=== PATIENT | female | born 1950 | race Asian ===

== ENCOUNTER 2023-09-19 02:12 | Inpatient (IN) | payer MEDICARE, OTHER ==
[~2023-09-19] VITALS: Ht 154.9 cm; Wt 103.0 kg
[2023-09-19 04:05] LABS: Chloride 99 mmol/L (98-107); Potassium 4.2 mmol/L (3.5-5.1); Sodium 132 mmol/L (136-145)
[2023-09-19 04:06] LABS: Anion Gap 8 (5-15); Calcium 9.9 mg/dL (8.7-10.4); Carbon Dioxide 25 mmol/L (20-30)
[2023-09-19 04:11] LABS: BUN/Creatinine Ratio 16.8 (10.0-20.0); Blood Urea Nitrogen 17 mg/dL (9-23); Glucose 103 mg/dL (74-106)
[2023-09-19 04:13] LABS: Basophils # (auto) 0.1 10 ^3/uL (0-0.2); Hemoglobin 11.5 g/dL (12.2-16.2); Lymphocytes # (auto) 1.8 10 ^3/uL (0.4-5.4); Monocytes # (auto) 0.8 10 ^3/uL (0-1.3); Red Cell Distribution Width 13.8 % (11.8-14.3); White Blood Cell 9.2 10^3/uL (4.4-10.8)
[2023-09-19 04:14] LABS: Basophils % (auto) 0.6 % (0.0-2.0); Eosinophils # (auto) 0.1 10 ^3/uL (0-0.8); Eosinophils % (auto) 1.2 % (0.0-7.0); Hematocrit 34.7 % (36.0-46.0); Lymphocytes % (auto) 19.6 % (10.0-50.0); Mean Corpuscular Hemoglobin 26.3 pg (28.0-32.0); Mean Corpuscular Hgb Conc. 33.2 g/dL (32.0-36.0); Mean Corpuscular Volume 79.4 fL (80.0-100.0); Monocytes % (auto) 8.9 % (0.0-12.0); Neutrophils # (auto) 6.4 10 ^3/uL (1.6-8.6); Neutrophils % (auto) 69.7 % (37.0-80.0); Nucleated Red Blood Cells % 0.1 %; Red Blood Cells 4.38 10^6/uL (4.0-5.20)
[2023-09-19 04:47] LABS: Erythrocyte Sedimentation Rate 35 mm/hr (0-20)
[2023-09-19] MEDS: IOHEXOL 350 MG/ML 100ML IJ ONE (06:10)
[2023-09-19] MEDS ORDERED: ONDANSETRON HCL 4 MG/2 ML VIAL IV PRN (11:00)
[2023-09-19] MEDS ORDERED: DEXTROSE (50%) 50ML SYRG IV PRN (11:00)
[2023-09-19] MEDS ORDERED: DOCUSATE SOD 100 MG CAP PO PRN (11:00)
[2023-09-19 11:08] VITALS: PULSE 64; RESP 14; O2SAT 100
[2023-09-19 11:49] LABS: INR 0.98 (0.9-1.15); Prothrombin Time 10.4 sec (9.3-11.8)
[2023-09-19] MEDS: HYDROcodone-ACET 5/325MG TAB PO ONE (12:05)
[2023-09-19] MEDS: KETOROLAC TROMETH 60MG/2ML VIAL IM ONE (12:05)
[2023-09-19] MEDS: PANTOPRAZOLE 40 MG/10 ML VIAL INJ IV ONE (12:05)
[2023-09-19] MEDS: COLCHICINE 0.6 MG CAP PO ONE (12:05)
[2023-09-19 12:08] LABS: Urine Bacteria FEW /hpf (None Seen); Urine Blood Negative /uL (Negative); Urine Clarity Clear (Clear); Urine Color Light-Yellow (Yellow); Urine Protein, UAD TRACE (Negative); Urine Urobilinogen Normal (Negative); Urine WBC 1 /hpf (0 - 5); Urine pH 6.5 (5.0-9.0)
[2023-09-19 12:10] LABS: Urine Specific Gravity > 1.050 (1.001-1.035)
[2023-09-19] MEDS: InsuLIN REG 1unit/0.01ml Soln (100units/ml) SC SCH (12:11)
[2023-09-19] MEDS: ACCU-CHEK COMFORT CURVE STRIP VI SCH (12:11)
[2023-09-19] MEDS: SODIUM CHLORIDE 0.9% 1,000 ML IV SCH ×2 (12:13→22:00)
[2023-09-19] MEDS: INDOMETHACIN 25 MG CAP PO SCH (12:37)
[2023-09-19 15:50] VITALS: BP 156/72; PULSE 64; RESP 19; TEMP 97.8; O2SAT 99
[2023-09-19 16:46] VITALS: BP 156/72; PULSE 64; RESP 20; TEMP 97.8; O2SAT 98
[2023-09-19 17:00] VITALS: BP 159/69; PULSE 61; RESP 18; TEMP 98; O2SAT 94
[2023-09-19] MEDS: MORPHINE SULFATE INJ 2 MG/ml SYRG IV PRN (17:26)
[2023-09-19] MEDS ORDERED: NIFE90TA75 PO (17:57)
[2023-09-19] MEDS ORDERED: TRIA50CA43 PO (17:57)
[2023-09-19] MEDS ORDERED: LOSA-535 PO (17:57)
[2023-09-19] MEDS ORDERED: METF-370 PO (17:57)
[2023-09-19] MEDS ORDERED: ASPI-543 PO (17:57)
[2023-09-19] MEDS ORDERED: ATOR20TA PO (17:57)
[2023-09-19] MEDS ORDERED: CLON0.1T PO ×2 (17:57→17:58)
[2023-09-19] MEDS ORDERED: PIO30T PO (17:57)
[2023-09-19] MEDS ORDERED: EST0625T PO (17:57)
[2023-09-19] MEDS ORDERED: SITA100T7 PO (17:57)
[2023-09-19 20:00] VITALS: BP 173/51; PULSE 65; RESP 16; TEMP 97.9; O2SAT 98
[2023-09-19 21:00] VITALS: BP 173/51; PULSE 65; RESP 16; TEMP 97.9; O2SAT 98
[2023-09-19] MEDS: ENOXAPARIN SOD 100 MG/1 ML SYRINGE SC SCH (21:10)
[2023-09-19] MEDS: LOSARTAN POTASSIUM 50 MG TAB PO SCH (22:00)
[2023-09-20] VITALS (7 sets, daily range): BP systolic 115–174; BP diastolic 44–75; PULSE 67–98; RESP 16–20; TEMP 97.7–98.8; O2SAT 94–98
[2023-09-20 06:42] LABS: Basophils # (auto) 0 10 ^3/uL (0-0.2); Basophils % (auto) 0.5 % (0.0-2.0); Eosinophils # (auto) 0.1 10 ^3/uL (0-0.8); Hemoglobin 10.6 g/dL (12.2-16.2); Lymphocytes % (auto) 22.9 % (10.0-50.0); Mean Corpuscular Hemoglobin 26.3 pg (28.0-32.0); Mean Corpuscular Hgb Conc. 33.2 g/dL (32.0-36.0); Monocytes # (auto) 0.9 10 ^3/uL (0-1.3); Neutrophils # (auto) 5.9 10 ^3/uL (1.6-8.6); Neutrophils % (auto) 65.6 % (37.0-80.0); Nucleated Red Blood Cells % 0.1 %; Red Blood Cells 4.05 10^6/uL (4.0-5.20); Red Cell Distribution Width 13.6 % (11.8-14.3); White Blood Cell 8.9 10^3/uL (4.4-10.8)
[2023-09-20 07:00] LABS: Alanine Aminotransferase 16 U/L (7-40); Albumin 3.4 g/dL (3.2-4.8); Alkaline Phosphatase 57 U/L (46-116); Anion Gap 9 (5-15); Aspartate Aminotransferase 21 U/L (13-40); BUN/Creatinine Ratio 19.8 (10.0-20.0); Bilirubin, Total 0.7 mg/dL (0.2-1.0); Blood Urea Nitrogen 22 mg/dL (9-23); Carbon Dioxide 23 mmol/L (20-30); Chloride 99 mmol/L (98-107); Glucose 135 mg/dL (74-106); Potassium 3.9 mmol/L (3.5-5.1); Sodium 131 mmol/L (136-145); Total Protein 6.3 g/dL (5.7-8.2)
[2023-09-20] MEDS: PANTOPRAZOLE 40 MG/10 ML VIAL INJ IV SCH (08:51)
[2023-09-20] MEDS: predniSONE 20 MG TAB PO SCH (08:52)
[2023-09-20] MEDS: cloNIDine HCL 0.1 MG TAB PO PRN (15:44)
[2023-09-21 08:00] VITALS: PULSE 78; RESP 18; O2SAT 98
[2023-09-21 08:54] VITALS: BP 176/67; PULSE 73; RESP 18; TEMP 97.8; O2SAT 98
[2023-09-21] MEDS: NIFEdipine ER 30 MG TAB PO ONE (11:25)
[2023-09-21] MEDS ORDERED: MELO15TA29 PO (11:38)
[2023-09-21] MEDS ORDERED: PRED1PAK9 PO (11:38)
[2023-09-21 12:47] VITALS: BP 146/61; PULSE 78; RESP 16; TEMP 97.8; O2SAT 98
[2023-09-21 15:26] VITALS: BP 146/61; PULSE 78; RESP 18; TEMP 97.8; O2SAT 98
[2023-09-23 07:06] LABS: Complement C3 111 mg/dL (82-167)
[2023-09-23 09:06] LABS: Anti-dsDNA Antibody 2 IU/mL (0-9)
== END 2023-09-21 16:06 | disposition home or self-care (01) | DRG 546 ==
LOC: ER 02:12 → OVERFLOW 11:00 → WEST WING 15:45
PROVIDERS: ADMIT Nurse Practitioner Acute Care; ATTEND Nurse Practitioner Acute Care
DX: M06.841 Other specified rheumatoid arthritis, right hand (principal); E87.1 Hypo-osmolality and hyponatremia; Z68.41 Body mass index [BMI] 40.0-44.9, adult; M19.041 Primary osteoarthritis, right hand; M10.9 Gout, unspecified; I10 Essential (primary) hypertension; E11.9 Type 2 diabetes mellitus without complications; E66.9 Obesity, unspecified; E78.00 Pure hypercholesterolemia, unspecified; E04.1 Nontoxic single thyroid nodule; F17.200 Nicotine dependence, unspecified, uncomplicated; Z88.2 Allergy status to sulfonamides; Z90.710 Acquired absence of both cervix and uterus; Z90.49 Acquired absence of other specified parts of digestive tract; Z83.3 Family history of diabetes mellitus
CPT/HCPCS: 36415; 70450; 70496; 80048; 80053; 81001; 82962; 83036; 84550; 85025; 85379; 85610; 85652; 86141; 86160; 86225; 86431; 93971; 97163; C9113; G0378; J1815; J1885

== ENCOUNTER 2024-01-18 18:45 | Emergency (ER) | payer MEDICARE, OTHER ==
[~2024-01-18] VITALS: Ht 154.9 cm; Wt 105.0 kg
[~2024-01-18 18:45] MED LIST: ATOR20TA PO; CLON0.1T PO; EST0625T PO; LOSA-535 PO; MELO15TA29 PO; METF-370 PO; NIFE90TA75 PO; PIO30T PO; PRED1PAK9 PO; SITA100T7 PO; TRIA50CA43 PO
[2024-01-18 19:06] VITALS: RESP 18
[2024-01-18 21:44] VITALS: BP 153/68; PULSE 74; TEMP 97.7; O2SAT 99
[2024-01-18] MEDS: ONDANSETRON ODT 4 MG TAB PO ONE (22:30)
[2024-01-18 23:01] LABS: COVID19 ANTIGEN SOFIA FIA POSITIVE (NEGATIVE); Rapid Influenza A Negative (Negative); Rapid Influenza B Positive (Negative)
[2024-01-18] MEDS ORDERED: OSEL75CA5 PO (23:38)
[2024-01-18] MEDS ORDERED: AZIT-185 PO (23:38)
[2024-01-18] MEDS ORDERED: ZOFR4T PO (23:40)
== END 2024-01-19 00:14 | disposition home or self-care (01) ==
LOC: ER 18:45
DX: U07.1 COVID-19 (principal); J10.1 Influenza due to other identified influenza virus with other respiratory manifestations; R11.2 Nausea with vomiting, unspecified; I10 Essential (primary) hypertension; E11.9 Type 2 diabetes mellitus without complications; E78.5 Hyperlipidemia, unspecified; Z98.890 Other specified postprocedural states; Z88.2 Allergy status to sulfonamides; Z79.899 Other long term (current) drug therapy
CPT/HCPCS: 36415; 87426; 87804; 99283; Q0162

== ENCOUNTER 2024-01-21 04:41 | Inpatient (IN) | payer MEDICARE, OTHER ==
[~2024-01-21] VITALS: Ht 154.9 cm; Wt 90.6 kg
[2024-01-21] VITALS (7 sets, daily range): BP systolic 148–153; BP diastolic 74–76; PULSE 61–81; RESP 15–18; TEMP 97.6; O2SAT 98–100
[~2024-01-21 04:41] MED LIST changes: +AZIT-185 PO; +OSEL75CA5 PO; +ZOFR4T PO
[2024-01-21 06:48] LABS: COVID19 ANTIGEN SOFIA FIA POSITIVE (NEGATIVE)
[2024-01-21 07:19] LABS: Rapid Influenza A Negative (Negative); Rapid Influenza B Negative (Negative)
[2024-01-21] MEDS: DexAMETHasone SOD PHOS 10MG/1ML VIAL INJ IV ONE (08:33)
[2024-01-21 10:13] LABS: Basophils # (auto) 0 10 ^3/uL (0-0.2); Basophils % (auto) 0.3 % (0.0-2.0); Eosinophils # (auto) 0 10 ^3/uL (0-0.8); Eosinophils % (auto) 0.4 % (0.0-7.0); Hematocrit 36.2 % (36.0-46.0); Hemoglobin 12.4 g/dL (12.2-16.2); Lymphocytes # (auto) 1.4 10 ^3/uL (0.4-5.4); Lymphocytes % (auto) 13.3 % (10.0-50.0); Mean Corpuscular Hemoglobin 26.9 pg (28.0-32.0); Mean Corpuscular Hgb Conc. 34.3 g/dL (32.0-36.0); Mean Corpuscular Volume 78.4 fL (80.0-100.0); Monocytes % (auto) 9.5 % (0.0-12.0); Neutrophils # (auto) 8.2 10 ^3/uL (1.6-8.6); Neutrophils % (auto) 76.5 % (37.0-80.0); Nucleated Red Blood Cells % 0.1 %; Platelet Count (auto) 223 10^3/uL (140-450); Red Blood Cells 4.62 10^6/uL (4.0-5.20); Red Cell Distribution Width 13.3 % (11.8-14.3); White Blood Cell 10.7 10^3/uL (4.4-10.8)
[2024-01-21 10:38] LABS: Alanine Aminotransferase 26 U/L (7-40); Albumin 3.9 g/dL (3.2-4.8); Alkaline Phosphatase 63 U/L (46-116); Anion Gap 7 (5-15); Aspartate Aminotransferase 41 U/L (13-40); BUN/Creatinine Ratio 8.3 (10.0-20.0); Bilirubin, Total 0.9 mg/dL (0.2-1.0); Blood Urea Nitrogen 7 mg/dL (9-23); Calcium 9.3 mg/dL (8.7-10.4); Carbon Dioxide 23 mmol/L (20-30); Chloride 87 mmol/L (98-107); Glucose 127 mg/dL (74-106)
[2024-01-21 10:43] LABS: Sodium 117 mmol/L (136-145)
[2024-01-21] MEDS: SODIUM CHLORIDE 0.9% 1,000 ML IV ONE (11:15)
[2024-01-21] MEDS ORDERED: SODIUM CHL 3% 500 ML IV ONE (13:45)
[2024-01-21] MEDS ORDERED: ONDANSETRON HCL 4 MG/2 ML VIAL IV PRN (14:45)
[2024-01-21] MEDS ORDERED: ACETAMINOPHEN 325 MG TAB PO PRN (14:45)
[2024-01-21 15:06] LABS: Chloride 92 mmol/L (98-107); Potassium 4.1 mmol/L (3.5-5.1)
[2024-01-21 15:07] LABS: Anion Gap 9 (5-15); Carbon Dioxide 23 mmol/L (20-30)
[2024-01-21 15:08] LABS: Calcium 9.1 mg/dL (8.7-10.4)
[2024-01-21 15:13] LABS: Blood Urea Nitrogen 8 mg/dL (9-23); Glucose 214 mg/dL (74-106)
[2024-01-21 15:17] LABS: Sodium 124 mmol/L (136-145)
[2024-01-21 15:54] LABS: Urine Bacteria FEW /hpf (None Seen); Urine Blood Negative /uL (Negative); Urine Clarity Clear (Clear); Urine Color Colorless (Yellow); Urine Protein, UAD Negative (Negative); Urine Specific Gravity 1.003 (1.001-1.035); Urine Urobilinogen Normal (Negative); Urine WBC <1 /hpf (0 - 5); Urine pH 6.5 (5.0-9.0)
[2024-01-21 16:09] LABS: Creatinine, Urine 20.26 mg/dL (30.0-125.0)
[2024-01-21] MEDS: HYDROmorphone HCL 2 MG/ML VL/or syr IV PRN (16:17)
[2024-01-21 17:25] LABS: Anion Gap 8 (5-15); Carbon Dioxide 23 mmol/L (20-30); Chloride 92 mmol/L (98-107); Potassium 3.7 mmol/L (3.5-5.1); Sodium 123 mmol/L (136-145)
[2024-01-21 17:26] LABS: Calcium 9.2 mg/dL (8.7-10.4)
[2024-01-21 17:31] LABS: BUN/Creatinine Ratio 9.2 (10.0-20.0); Blood Urea Nitrogen 8 mg/dL (9-23); Glucose 299 mg/dL (74-106)
[2024-01-21] MEDS: SODIUM CHLOR 0.9% PF (SALINE LOCK) 10ML VIAL/SYR IV SCH (22:29)
[2024-01-21] MEDS: HYDROcodone-ACET 5/325MG TAB PO PRN (22:32)
[2024-01-21 22:36] LABS: Chloride 95 mmol/L (98-107); Potassium 3.9 mmol/L (3.5-5.1); Sodium 125 mmol/L (136-145)
[2024-01-21 22:38] LABS: Calcium 9.5 mg/dL (8.7-10.4)
[2024-01-21 22:44] LABS: BUN/Creatinine Ratio 8.5 (10.0-20.0); Blood Urea Nitrogen 10 mg/dL (9-23)
[2024-01-21 22:54] LABS: Glucose 368 mg/dL (74-106)
[2024-01-21 23:11] LABS: Anion Gap 6 (5-15); Carbon Dioxide 24 mmol/L (20-30)
[2024-01-22] VITALS (10 sets, daily range): BP systolic 121–166; BP diastolic 52–80; PULSE 58–92; RESP 17–20; TEMP 97.8–99.1; O2SAT 94–100
[2024-01-22 05:48] LABS: Basophils # (auto) 0 10 ^3/uL (0-0.2); Eosinophils # (auto) 0 10 ^3/uL (0-0.8); Monocytes # (auto) 1.2 10 ^3/uL (0-1.3); White Blood Cell 8.8 10^3/uL (4.4-10.8)
[2024-01-22 05:51] LABS: Basophils % (auto) 0.3 % (0.0-2.0); Eosinophils % (auto) 0.2 % (0.0-7.0); Hematocrit 33.6 % (36.0-46.0); Hemoglobin 11.8 g/dL (12.2-16.2); Lymphocytes # (auto) 1.6 10 ^3/uL (0.4-5.4); Lymphocytes % (auto) 17.9 % (10.0-50.0); Mean Corpuscular Hemoglobin 27.1 pg (28.0-32.0); Mean Corpuscular Hgb Conc. 35.1 g/dL (32.0-36.0); Mean Corpuscular Volume 77.4 fL (80.0-100.0); Monocytes % (auto) 13.7 % (0.0-12.0); Neutrophils % (auto) 67.9 % (37.0-80.0); Nucleated Red Blood Cells % 0.3 %; Platelet Count (auto) 293 10^3/uL (140-450); Red Blood Cells 4.34 10^6/uL (4.0-5.20); Red Cell Distribution Width 13.4 % (11.8-14.3)
[2024-01-22 06:03] LABS: Anion Gap 9 (5-15); Carbon Dioxide 25 mmol/L (20-30); Chloride 95 mmol/L (98-107); Potassium 3.5 mmol/L (3.5-5.1); Sodium 129 mmol/L (136-145)
[2024-01-22 06:05] LABS: Calcium 8.9 mg/dL (8.7-10.4)
[2024-01-22 06:09] LABS: BUN/Creatinine Ratio 14.3 (10.0-20.0); Blood Urea Nitrogen 12 mg/dL (9-23); Glucose 175 mg/dL (74-106)
[2024-01-22] MEDS ORDERED: DEXTROSE (50%) 50ML SYRG IV PRN (08:45)
[2024-01-22] MEDS: ENOXAPARIN SOD 40 MG/0.4 ML SYRINGE SC SCH (09:34)
[2024-01-22 10:29] LABS: Anion Gap 5 (5-15); Carbon Dioxide 27 mmol/L (20-30); Chloride 95 mmol/L (98-107); Potassium 3.6 mmol/L (3.5-5.1); Sodium 127 mmol/L (136-145)
[2024-01-22 10:30] LABS: Calcium 9.3 mg/dL (8.7-10.4)
[2024-01-22 10:35] LABS: BUN/Creatinine Ratio 11.6 (10.0-20.0); Blood Urea Nitrogen 11 mg/dL (9-23); Glucose 239 mg/dL (74-106)
[2024-01-22 12:12] LABS: Erythrocyte Sedimentation Rate 43 mm/hr (0-20)
[2024-01-22] MEDS ORDERED: HYDR200T36 PO (13:28)
[2024-01-22] MEDS ORDERED: MELO7.5T7 PO (13:28)
[2024-01-22] MEDS: ACCU-CHEK COMFORT CURVE STRIP VI SCH (14:01)
[2024-01-22] MEDS: DexAMETHasone 4 MG TAB PO SCH (14:01)
[2024-01-22] MEDS: InsuLIN REG 1unit/0.01ml Soln (100units/ml) SC SCH ×2 (14:07→21:55)
[2024-01-22 16:47] LABS: Chloride 93 mmol/L (98-107); Potassium 3.5 mmol/L (3.5-5.1); Sodium 126 mmol/L (136-145)
[2024-01-22 16:48] LABS: Anion Gap 7 (5-15); Calcium 9.3 mg/dL (8.7-10.4); Carbon Dioxide 26 mmol/L (20-30)
[2024-01-22 16:53] LABS: BUN/Creatinine Ratio 14.7 (10.0-20.0); Blood Urea Nitrogen 15 mg/dL (9-23); Glucose 277 mg/dL (74-106)
[2024-01-23] VITALS (10 sets, daily range): BP systolic 131–160; BP diastolic 44–78; PULSE 72–92; RESP 17–20; TEMP 98–98.9; O2SAT 96–100
[2024-01-23 05:52] LABS: Basophils # (auto) 0 10 ^3/uL (0-0.2); Basophils % (auto) 0.1 % (0.0-2.0); Eosinophils # (auto) 0 10 ^3/uL (0-0.8); Hematocrit 35.1 % (36.0-46.0); Hemoglobin 12.1 g/dL (12.2-16.2); Lymphocytes # (auto) 1.1 10 ^3/uL (0.4-5.4); Lymphocytes % (auto) 12.3 % (10.0-50.0); Mean Corpuscular Hemoglobin 27.1 pg (28.0-32.0); Mean Corpuscular Hgb Conc. 34.5 g/dL (32.0-36.0); Mean Corpuscular Volume 78.6 fL (80.0-100.0); Monocytes # (auto) 0.5 10 ^3/uL (0-1.3); Monocytes % (auto) 5.3 % (0.0-12.0); Neutrophils # (auto) 7.1 10 ^3/uL (1.6-8.6); Neutrophils % (auto) 82.3 % (37.0-80.0); Nucleated Red Blood Cells % 0.1 %; Platelet Count (auto) 352 10^3/uL (140-450); Red Blood Cells 4.47 10^6/uL (4.0-5.20); Red Cell Distribution Width 13.3 % (11.8-14.3); White Blood Cell 8.7 10^3/uL (4.4-10.8)
[2024-01-23 08:06] LABS: Complement C3 108 mg/dL (82-167)
[2024-01-23 10:07] LABS: Anti-Centromere B Antibody <0.2 AI (0.0-0.9); Anti-Jo-1 Antibody <0.2 AI (0.0-0.9); Anti-dsDNA Antibody 2 IU/mL (0-9); Antichromatin Antibody <0.2 AI (0.0-0.9); Antiscleroderma-70 Antibody >8.0 AI (0.0-0.9); RNP Antibody <0.2 AI (0.0-0.9); Sjogren's Anti-SS-A Antibody <0.2 AI (0.0-0.9); Sjogren's Anti-SS-B Antibody <0.2 AI (0.0-0.9); Smith Antibody <0.2 AI (0.0-0.9)
[2024-01-23 10:26] LABS: Chloride 98 mmol/L (98-107); Potassium 4.3 mmol/L (3.5-5.1); Sodium 128 mmol/L (136-145)
[2024-01-23 10:27] LABS: Anion Gap 4 (5-15); Carbon Dioxide 26 mmol/L (20-30)
[2024-01-23 10:32] LABS: BUN/Creatinine Ratio 20.8 (10.0-20.0); Blood Urea Nitrogen 16 mg/dL (9-23); Glucose 187 mg/dL (74-106)
[2024-01-23] MEDS: ATORVASTATIN 20 MG TAB PO SCH (11:21)
[2024-01-23] MEDS: NIFEdipine ER 30 MG TAB PO SCH (11:21)
[2024-01-24] VITALS (8 sets, daily range): BP systolic 141–172; BP diastolic 64–75; PULSE 69–87; RESP 18–20; TEMP 97.1–98.4; O2SAT 97–100
[2024-01-24] MEDS: METOPROLOL TARTRATE 25 MG TAB PO SCH (00:18)
[2024-01-24 05:57] LABS: Basophils # (auto) 0.1 10 ^3/uL (0-0.2); Basophils % (auto) 0.7 % (0.0-2.0); Eosinophils # (auto) 0 10 ^3/uL (0-0.8); Eosinophils % (auto) 0.1 % (0.0-7.0); Hematocrit 37.5 % (36.0-46.0); Hemoglobin 12.9 g/dL (12.2-16.2); Lymphocytes % (auto) 18.8 % (10.0-50.0); Mean Corpuscular Hgb Conc. 34.4 g/dL (32.0-36.0); Mean Corpuscular Volume 78.4 fL (80.0-100.0); Monocytes # (auto) 1.2 10 ^3/uL (0-1.3); Monocytes % (auto) 7.3 % (0.0-12.0); Neutrophils # (auto) 11.6 10 ^3/uL (1.6-8.6); Neutrophils % (auto) 73.1 % (37.0-80.0); Platelet Count (auto) 469 10^3/uL (140-450); Red Blood Cells 4.78 10^6/uL (4.0-5.20); Red Cell Distribution Width 13.2 % (11.8-14.3); White Blood Cell 15.9 10^3/uL (4.4-10.8)
[2024-01-24 06:01] LABS: Chloride 96 mmol/L (98-107); Sodium 130 mmol/L (136-145)
[2024-01-24 06:02] LABS: Anion Gap 10 (5-15); Calcium 9.3 mg/dL (8.7-10.4); Carbon Dioxide 24 mmol/L (20-30)
[2024-01-24 06:07] LABS: BUN/Creatinine Ratio 18.4 (10.0-20.0); Blood Urea Nitrogen 16 mg/dL (9-23); Glucose 200 mg/dL (74-106)
[2024-01-24] MEDS: MAGNESIUM SULFATE 1GM/100ML 100 ML IV ONE (14:21)
[2024-01-24] MEDS: hydrALAZINE HCL 20 MG/ML VL IV PRN (22:22)
[2024-01-25] VITALS (8 sets, daily range): BP systolic 146–168; BP diastolic 58–74; PULSE 68–89; RESP 14–20; TEMP 97.8–98.9; O2SAT 97–99
[2024-01-25 05:29] LABS: Protein, Urine 21.9 mg/dL (0.0-11.9)
[2024-01-25 05:31] LABS: Creatinine, Urine 44.31 mg/dL (30.0-125.0)
[2024-01-25] MEDS: MAGNESIUM OXIDE 400 MG TAB PO SCH (09:40)
[2024-01-25] MEDS: METOPROLOL SUCCINATE XL 50 MG TAB PO SCH (09:41)
[2024-01-25 11:59] LABS: Basophils # (auto) 0.1 10 ^3/uL (0-0.2); Basophils % (auto) 0.6 % (0.0-2.0); Eosinophils # (auto) 0.1 10 ^3/uL (0-0.8); Eosinophils % (auto) 0.4 % (0.0-7.0); Hematocrit 38.5 % (36.0-46.0); Lymphocytes # (auto) 3.3 10 ^3/uL (0.4-5.4); Lymphocytes % (auto) 24.2 % (10.0-50.0); Mean Corpuscular Hemoglobin 27.1 pg (28.0-32.0); Mean Corpuscular Hgb Conc. 33.8 g/dL (32.0-36.0); Mean Corpuscular Volume 80.2 fL (80.0-100.0); Monocytes % (auto) 7.4 % (0.0-12.0); Neutrophils # (auto) 9.1 10 ^3/uL (1.6-8.6); Neutrophils % (auto) 67.4 % (37.0-80.0); Platelet Count (auto) 438 10^3/uL (140-450); Red Cell Distribution Width 13.7 % (11.8-14.3); White Blood Cell 13.4 10^3/uL (4.4-10.8)
[2024-01-25 12:06] LABS: Chloride 99 mmol/L (98-107); Potassium 3.7 mmol/L (3.5-5.1); Sodium 130 mmol/L (136-145)
[2024-01-25 12:07] LABS: Anion Gap 5 (5-15); Calcium 8.9 mg/dL (8.7-10.4); Carbon Dioxide 26 mmol/L (20-30)
[2024-01-25 12:12] LABS: BUN/Creatinine Ratio 19.1 (10.0-20.0); Blood Urea Nitrogen 17 mg/dL (9-23); Glucose 250 mg/dL (74-106); Magnesium 1.8 mg/dL (1.6-2.6)
[2024-01-26] VITALS (8 sets, daily range): BP systolic 142–169; BP diastolic 53–71; PULSE 62–99; RESP 15–20; TEMP 97.5–98.4; O2SAT 96–100
[2024-01-26 05:47] LABS: Basophils # (auto) 0.1 10 ^3/uL (0-0.2); Eosinophils # (auto) 0 10 ^3/uL (0-0.8); Lymphocytes # (auto) 3.6 10 ^3/uL (0.4-5.4)
[2024-01-26 05:50] LABS: Basophils % (auto) 0.5 % (0.0-2.0); Eosinophils % (auto) 0.2 % (0.0-7.0); Hematocrit 34.6 % (36.0-46.0); Hemoglobin 11.9 g/dL (12.2-16.2); Lymphocytes % (auto) 29.6 % (10.0-50.0); Mean Corpuscular Hgb Conc. 34.5 g/dL (32.0-36.0); Mean Corpuscular Volume 78.3 fL (80.0-100.0); Monocytes # (auto) 1.1 10 ^3/uL (0-1.3); Monocytes % (auto) 8.8 % (0.0-12.0); Neutrophils # (auto) 7.4 10 ^3/uL (1.6-8.6); Neutrophils % (auto) 60.9 % (37.0-80.0); Nucleated Red Blood Cells % 0.1 %; Platelet Count (auto) 406 10^3/uL (140-450); Red Blood Cells 4.42 10^6/uL (4.0-5.20); Red Cell Distribution Width 13.7 % (11.8-14.3); White Blood Cell 12.1 10^3/uL (4.4-10.8)
[2024-01-26 05:51] LABS: Anion Gap 6 (5-15); Carbon Dioxide 25 mmol/L (20-30); Chloride 105 mmol/L (98-107); Potassium 3.4 mmol/L (3.5-5.1)
[2024-01-26 05:53] LABS: Calcium 8.3 mg/dL (8.7-10.4)
[2024-01-26 05:58] LABS: BUN/Creatinine Ratio 25.7 (10.0-20.0); Blood Urea Nitrogen 18 mg/dL (9-23); Glucose 77 mg/dL (74-106); Magnesium 1.9 mg/dL (1.6-2.6)
[2024-01-26 06:08] LABS: Sodium 136 mmol/L (136-145)
[2024-01-26] MEDS: INSULIN LANTUS (GLARGINE) 1 /0.01ml (100units/ml) SC SCH (21:46)
[2024-01-27 00:51] VITALS: BP 158/68; PULSE 77; RESP 16; TEMP 97.9; O2SAT 100
[2024-01-27 04:57] VITALS: BP 140/58; PULSE 69; RESP 17; TEMP 97.7; O2SAT 99
[2024-01-27 06:25] LABS: Basophils # (auto) 0 10 ^3/uL (0-0.2); Basophils % (auto) 0.4 % (0.0-2.0); Eosinophils # (auto) 0 10 ^3/uL (0-0.8); Eosinophils % (auto) 0.3 % (0.0-7.0); Hematocrit 34.8 % (36.0-46.0); Hemoglobin 11.9 g/dL (12.2-16.2); Lymphocytes # (auto) 3.4 10 ^3/uL (0.4-5.4); Lymphocytes % (auto) 27.2 % (10.0-50.0); Mean Corpuscular Hemoglobin 27.1 pg (28.0-32.0); Mean Corpuscular Hgb Conc. 34.1 g/dL (32.0-36.0); Mean Corpuscular Volume 79.4 fL (80.0-100.0); Monocytes % (auto) 8.1 % (0.0-12.0); Neutrophils # (auto) 8.1 10 ^3/uL (1.6-8.6); Platelet Count (auto) 403 10^3/uL (140-450); Red Blood Cells 4.39 10^6/uL (4.0-5.20); Red Cell Distribution Width 13.4 % (11.8-14.3); White Blood Cell 12.6 10^3/uL (4.4-10.8)
[2024-01-27 06:52] LABS: Chloride 104 mmol/L (98-107); Potassium 3.5 mmol/L (3.5-5.1); Sodium 135 mmol/L (136-145)
[2024-01-27 06:53] LABS: Anion Gap 7 (5-15); Calcium 8.5 mg/dL (8.7-10.4); Carbon Dioxide 24 mmol/L (20-30)
[2024-01-27 06:58] LABS: BUN/Creatinine Ratio 25.8 (10.0-20.0); Blood Urea Nitrogen 17 mg/dL (9-23); Glucose 64 mg/dL (74-106)
[2024-01-27 06:59] LABS: Magnesium 1.9 mg/dL (1.6-2.6)
[2024-01-27 09:30] VITALS: BP 159/69; PULSE 76; RESP 18; TEMP 97.3; O2SAT 98
== END 2024-01-27 10:38 | disposition home or self-care (01) | DRG 177 ==
LOC: EDUNIT# 04:41 → ER 04:41 → EDBD 04:41 → TELE 14:33 → TELE-EAST 20:56
PROVIDERS: ADMIT Internal Medicine; ATTEND Nurse Practitioner Acute Care
DX: U07.1 COVID-19 (principal); J12.82 Pneumonia due to coronavirus disease 2019; E87.1 Hypo-osmolality and hyponatremia; I47.10 Supraventricular tachycardia, unspecified; I10 Essential (primary) hypertension; E78.5 Hyperlipidemia, unspecified; E83.42 Hypomagnesemia; E66.01 Morbid (severe) obesity due to excess calories; E86.1 Hypovolemia; M06.9 Rheumatoid arthritis, unspecified; E11.65 Type 2 diabetes mellitus with hyperglycemia; I35.0 Nonrheumatic aortic (valve) stenosis; T50.2X5A Adverse effect of carbonic-anhydrase inhibitors, benzothiadiazides and other diuretics, initial encounter; Z90.49 Acquired absence of other specified parts of digestive tract; Z90.710 Acquired absence of both cervix and uterus; Z88.2 Allergy status to sulfonamides; Z78.9 Other specified health status; Z79.84 Long term (current) use of oral hypoglycemic drugs; Z68.37 Body mass index [BMI] 37.0-37.9, adult; Y92.89 Other specified places as the place of occurrence of the external cause
CPT/HCPCS: 36415; 70450; 71045; 80048; 80053; 81001; 82570; 82962; 83036; 83516; 83735; 83930; 83935; 84156; 84300; 84443; 84550; 85025; 85379; 85652; 86141; 86160; 86225; 86235; 86431; 87426; 87804; 93005; 93306; 96374; G0378; J1100; J1815; Q0162